=== PATIENT | male | born 1975 | race African-American/Black ===

== ENCOUNTER → 2017-02-13 13:38 | Outpatient (CLI) | payer MEDICAID | END | disposition home or self-care (01) | LOC: D.MRI 13:38 | DX: M54.5 Low back pain (principal) ==

== ENCOUNTER → 2017-02-26 08:12 | Outpatient (CLI) | payer MEDICAID | END | disposition home or self-care (01) | LOC: D.MRI 08:12 | DX: M54.5 Low back pain (principal) ==

== ENCOUNTER 2019-03-04 12:22 | Emergency (ER) | payer OTHER, SELFPAY ==
[~2019-03-04] VITALS: Ht 181.6 cm; Wt 104.5 kg
[2019-03-04 12:26] VITALS: Ht 181.6 cm; Wt 104.5 kg
[2019-03-04] MEDS ORDERED: LISINOPRIL20 MG PO ×2 (12:28→13:34)
[2019-03-04] MEDS ORDERED: NORVASC5 MG PO ×2 (12:28→13:34)
[2019-03-04 13:35] VITALS: BP 168/123
== END 2019-03-04 13:36 | disposition home or self-care (01) ==
LOC: D.ER 12:22
DX: M25.512 Pain in left shoulder (principal); V89.2XXA Person injured in unspecified motor-vehicle accident, traffic, initial encounter; Y93.9 Activity, unspecified; Y92.9 Unspecified place or not applicable; I10 Essential (primary) hypertension